=== PATIENT | male | born 1960 | race Caucasian/White ===

== ENCOUNTER → 2018-01-11 09:55 | Outpatient (CLI) | payer OTHER, MEDICAID, SELFPAY ==
--- NOTE | 2018-01-11 | DI.RAD.S_ITS ---
PROCEDURE: XR CLAVICLE LT INDICATIONS: LEFT CLAVICLE PAIN TECHNIQUE: 2 views of the clavicle were acquired. COMPARISON: None. FINDINGS: Bones: No dislocations. No suspicious bony lesions. There is a distal clavicular comminuted fracture, with a longitudinal fracture component displaced inferiorly from the distal third of the clavicle by 21.8 cm. This likely maintains alignment in relationship to the coracoid process due to the intact coracoclavicular ligament and a similar malalignment is present at the far distal clavicle with the fracture fragment aligned with the adjacent acromion. Soft tissues: No suspicious soft tissue calcifications. IMPRESSION: Comminuted fracture with significant displacement as discussed, presumably with intact coracoclavicular and acromioclavicular ligaments but fractures between the margins are by up to 1.8 cm. Dictated by: Jimi Hinson M.D. on 01/11/2018 at 11:40 Approved by: Jimi Hinson M.D. on 01/11/2018 at 11:41
== END ==
PROVIDERS: PCP Family Medicine; Visit Provider Family Medicine
DX: S42.032A Displaced fracture of lateral end of left clavicle, initial encounter for closed fracture (principal)
CPT/HCPCS: 73000

== ENCOUNTER → 2018-01-21 15:43 | Outpatient (CLI) | payer OTHER, MEDICAID, SELFPAY ==
--- NOTE | 2018-01-21 15:51 | DI.CT.S_ITS ---
PROCEDURE: CT UE LT WO CON INDICATIONS: COMMINUTED TECHNIQUE: Noncontrast 1-1.5 mm thick sections acquired from the acromioclavicular joint to the inferior scapula, with coronal and sagittal reformatting. COMPARISON: [facility], [facility]WAN, XR CLAVICLE LT, 01/11/2018, 11:11. FINDINGS: Image quality: Excellent. There is a comminuted fracture predominantly within the distal aspect of the left clavicle with extension into the proximal region. Mild surrounding hematoma is present. There is mild displacement of fracture fragments without overall angulation. Narrowing of the acromioclavicular joint is present most suggestive of degenerative change. There is mild glenohumeral narrowing also suggestive of degenerative change. No visualized fractures are identified within the adjacent scapula or chromium. Humeral head appears intact. IMPRESSION: 1. Comminuted fracture of the distal and mid clavicle with mild displacement of fracture fragments. No gross angulation. No additional fractures are identified. 2. Acromioclavicular and glenohumeral degenerative narrowing. Dictated by: Irma Stoddard M.D. on 01/21/2018 at 16:53 Approved by: Irma Stoddard M.D. on 01/21/2018 at 16:57
== END ==
PROVIDERS: PCP Family Medicine; Visit Provider Family Medicine
DX: S42.022A Displaced fracture of shaft of left clavicle, initial encounter for closed fracture (principal); M19.012 Primary osteoarthritis, left shoulder
CPT/HCPCS: 73200

== ENCOUNTER → 2020-09-07 08:58 | Outpatient (CLI) | payer OTHER, MEDICAID, SELFPAY ==
[2020-09-07 09:45] LABS: Add Manual Diff / Slide Review NO; Basophils Absolute Auto 0 /uL (0-100); Basophils Percent Auto 0.5 % (0-2); Eosinophils Absolute Auto 100 /uL (0-450); Eosinophils Percent Auto 1.2 % (2-4); Hematocrit 42.5 % (41-53); Hemoglobin 14.5 g/dL (13.5-17.5); Lymphocytes Absolute Auto 1800 /uL (1100-4500); Lymphocytes Percent Auto 27.2 % (25-40); Mean Corpuscular HGB Conc 34.2 % (30-36); Mean Corpuscular Volume 90.8 fL (80-100); Monocytes Absolute Auto 500 /uL (0-900); Monocytes Percent Auto 7.7 % (3-14); Neutrophils Absolute Auto 4100 /uL (1500-7000); Neutrophils Percent Auto 63.4 % (50-75); Platelet Count 221 X10^3/uL (150-400); Red Blood Cell Count 4.68 X10^6/uL (4.5-5.9); Red Cell Distribution Width 13.1 % (11.6-14.8); White Blood Cell Count 6.5 X10^3/uL (4.5-11.0)
[2020-09-07 10:07] LABS: Alanine Aminotransferase 33 IU/L (<50); Albumin 4.6 g/dL (3.5-5.0); Albumin Globulin Ratio 1.3 (1.0-2.8); Alkaline Phosphatase 60 U/L (38-126); Aspartate Aminotransferase 38 IU/L (17-59); BUN Creatinine Ratio 20.7 (6-22); Bilirubin Total 1.7 mg/dL (0.2-1.3); Blood Urea Nitrogen 19 mg/dL (9-20); Calcium 10.1 mg/dL (8.4-10.2); Carbon Dioxide 33 mmol/L (22-32); Chloride 97 mmol/L (98-107); Cholesterol 192 mg/dL (140-199); Estimated Glomerular Filt Rate > 60.0 mL/min (>60); Globulin 3.6 g/dL (1.7-4.1); Glucose 106 mg/dL (80-110); HDL Cholesterol 66 mg/dL (40-60); HEMOLYSIS < 15 (0-50); LDL Cholesterol Calculated 91 mg/dL (<100); Potassium 4.3 mmol/L (3.4-5.1); Sodium 137 mmol/L (137-145); Total Protein 8.2 g/dL (6.3-8.2); Triglycerides 176 mg/dL (35-150)
[2020-09-07 10:18] LABS: LDL Cholesterol Direct 105 mg/dL (<100)
[2020-09-07 10:37] LABS: Thyroid Stimulating Hormone 2.06 uIU/mL (0.47-4.68)
[2020-09-07 13:35] LABS: Hep C Virus Ab w/Reflex Quant NEGATIVE s/c (NEGATIVE)
== END ==
PROVIDERS: PCP Family Medicine; Referring Provider Family Medicine; Visit Provider Family Medicine
DX: Z79.899 Other long term (current) drug therapy (principal); E78.5 Hyperlipidemia, unspecified; Z12.5 Encounter for screening for malignant neoplasm of prostate; Z11.59 Encounter for screening for other viral diseases
CPT/HCPCS: 36415; 80053; 80061; 83721; 84443; 85025; 86803; G0103

== ENCOUNTER → 2021-11-12 10:32 | Outpatient (CLI) | payer OTHER, MEDICAID, SELFPAY ==
[2021-11-12 11:39] LABS: COVID19 -Nasal RAPID Negative (Negative)
== END ==
PROVIDERS: PCP Family Medicine; Visit Provider Nurse Practitioner Family
DX: Z20.822 Contact with and (suspected) exposure to COVID-19 (principal)
CPT/HCPCS: 87635; C9803

== ENCOUNTER 2021-11-14 12:38 | Day surgery (SDC) | payer OTHER, MEDICAID, SELFPAY ==
--- NOTE | 2021-11-14 | PATH_ITS ---
[facility] Accession Number: [id number] . 01 Material submitted: . colon - TRANSVERSE COLON POLYP 4MM . 01 Diagnosis: Transverse Colon Polyp, 4 mm, Biopsy: Colonic mucosa with prominent benign lymphoid aggregate. Negative for serrated lesion, dysplasia or malignancy. Additional step sections examined. MRV 11/19/2021 1237 Local . 01 Electronically signed: . Liam Justice MD, PhD, Pathologist NPI- [id number] . 01 Gross description: . TRANSVERSE COLON POLYP 4MM: Received in formalin is 1 fragment(s) of brandon, soft tissue measuring 0.4 x 0.3 x 0.2 cm submitted entirely in 1 cassette(s) /CPE 11/15/2021 0933 Local . 01 Pathologist provided ICD-10: K63.5 . 01 CPT . 121172 Specimen Comment: A courtesy copy of this report has been sent to [phone] Performed at: 01 [facility] [address] [place] [address] [address], [place], [place] [id number] MD Junior Yarbrough MD Phone: [phone]
--- NOTE | 2021-11-14 12:16 | PM.HP.1 ---
History of Present Illness History of Present Illness Date Patient Seen: 11/14/21 Chief complaint: SDC Narrative: 61 year old male comes in today for consideration of a screening colonoscopy. Has had 1 previous colonoscopy, denies polyps. There have been no lower GI symptoms suggesting disease such as change in bowel habits, bleeding, abdominal pain or anemia. There's been no family history of colon cancer or colon polyps. Overall health issues have been stable, including no major cardiac events for at least 6 weeks. PCP: Dr. Avila Past medical history: Insomnia Fecal urgency Hypertension Hyperlipidemia Eczema Past surgical history: Hernia repair with mesh, 1993 Family history: Father: Hypertension Mother: hyperlipidemia Siblings: Hypertension Social History: , master's degree, health care consultant. Alcohol drinks/day: 2-4 a week >5/day in last 3 mos: no Caffeine use/day: 1-2 Type of Exercise: walkd Exercise Times per Week: 4-7 Guns in home: no Dental Care w/in 6 mos.: yes Sun Exposure: frequently Seat Belt Use: yes Smoking Status: never smoker Drug Use: never HIV High Risk Behavior: no Patient History Medical History Burst fracture of lumbar vertebra Eczema Hyperlipemia Hypertension Insomnia Skin cancer Surgical History (Updated 11/13/21 @ 16:22 by July Elizabeth RN) Hx of hernia repair Family & Social History Tobacco & Substance use: Smoking Status Never smoker alcohol intake frequency a few times a week Substance Use Type marijuana Meds Home Medications and Allergies Home Medications Medication Instructions Recorded Confirmed Type aspirin 81 mg tablet 81 mg PO DAILY 11/14/21 11/14/21 History atorvastatin 20 mg tablet 20 mg PO DAILY 11/14/21 11/14/21 History losartan 50 mg tablet 50 mg DAILY 11/14/21 11/14/21 History triamterene 37.5 1 tab PO DAILY 11/14/21 11/14/21 History mg-hydrochlorothiazide 25 mg tablet Allergies Allergy/AdvReac Type Severity Reaction Status Date / Time No Known Drug Allergies Allergy Verified 11/14/21 13:04 Review of Systems Review of Systems Narrative: All remaining ROS were reviewed and negative except as addressed. Exam Narrative Exam Narrative: GENERAL: Alert and oriented, appearing stated age and in no acute distress. HEENT: Head normocephalic/atraumatic. Extraocular movements intact. LUNGS: Clear to ausculation bilaterally, no wheezes, rhonchi or rales. CV: Normal S1 and S2 with regular rate and rhythm, no audible murmurs, rubs or gallops. ABDOMEN: Soft, non-tender, non-distended, no organomegaly. Positive bowel sounds. EXTREMITIES: No clubbing, cyanosis, or edema. NEURO: Cranial nerves II through XII grossly intact, no focal deficits. PSYCH: Alert and oriented x 3. SKIN: No concerning lesions. Assessment & Plan Assessment & Plan narrative: 1. Screening for colon cancer Plan for colonoscopy. The nature and character of the procedure as well as anticipated results were discussed. The possibility of not completing the procedure was also discussed. Possible complications including aspiration pneumonia, bleeding, perforation and reaction to medications either for sedation or preparation and missed lesions were discussed. Questions were answered and proceeding to the colonoscopy was elected. Informed consent signed. I sincerely appreciate the referral allowing me to participate in this patient's care. Please contact me with any questions or concerns.
[2021-11-14] MEDS: HYOSCYAMINE 0.125 MG TABLET PO (13:08)
[2021-11-14 13:09] VITALS: BP 157/92; PULSE 83; RESP 18; TEMP 37.2; O2SAT 98
[2021-11-14 13:10] VITALS: BMI 29.5
[2021-11-14] MEDS: LACTATED RINGERS 1,000 ML 200 ML IV (13:30)
--- NOTE | 2021-11-14 13:37 | PM.OP.COLON ---
Operative Date/Time/Diagnoses Date of procedure: 11/14/21 Procedure Notes SCOAP/Timeout: 1:49 p.m. Procedure in detail: ENDOSCOPIST: Keiry De Los Santos MD Sedation RN: Aditi Ott RN Sedation start time: 1:50 p.m. Sedation end time: 2:09 p.m. PROCEDURE: Colonoscopy with cold biopsy INDICATIONS: 1. Screening for colon cancer MEDICATION: Levsin 0.125 mg sublingual, incremental doses of Versed and fentanyl until appropriate level sedation achieved. ASA CLASS: 2 CECAL WITHDRAWAL TIME: 9 minutes COMPLICATIONS: None. EXTENT OF PROCEDURE: Cecum. QUALITY OF PREP: Good with portions of liquid stool. PROCEDURE: Prior to insertion of the colonoscope, a digital rectal examination was accomplished with circumferential palpation of the distal rectal mucosa without significant findings being noted. The high-definition colonoscope was passed into the rectum in the usual fashion and advanced over to the cecum without difficulty. The ileocecal valve, appendiceal stoma, and medial wall all could be inspected and no abnormalities were seen. ASCENDING COLON: As the colonoscope was withdrawn, care was taken to expose and inspect the haustral folds and no abnormalities were seen. HEPATIC FLEXURE: Normal, no polyps, diverticula or other abnormalities. TRANSVERSE COLON: A 4 mm polyp was seen and removed with cold biopsy forceps, otherwise, no diverticula or other abnormalities. DESCENDING COLON: Normal, no polyps, diverticula or other abnormalities. SIGMOID COLON: Normal, no polyps, diverticula or other abnormalities. RECTUM: Normal. J maneuver was produced. There was no significant perianal disease. The J maneuver was broken. The remainder of the rectum was inspected and there was no external hemorrhoid disease. The scope was withdrawn. IMPRESSION: 1. Transverse colon polyp x1, 4 mm, removed with cold biopsy forceps PLAN: 1. Follow-up in clinic status post pathology results. The possibility of a missed lesion including a malignancy has been discussed with the patient previously. Potential alarm symptoms have been discussed and should be reported immediately.
[2021-11-14] MEDS: fentaNYL 250 MCG/5 ML INJ IV (13:58)
[2021-11-14] MEDS: MIDAZOLAM 5 MG/5 ML VIAL IV (13:58)
[2021-11-14 14:14] VITALS: BP 117/83; PULSE 80; RESP 11; TEMP 36.1; O2SAT 93
[2021-11-14 14:19] VITALS: BP 124/84; PULSE 80; RESP 17; O2SAT 94
[2021-11-14 14:24] VITALS: BP 118/77; PULSE 80; RESP 11; TEMP 36.7; O2SAT 92
== END 2021-11-14 14:35 | disposition home or self-care (01) ==
PROVIDERS: PCP Family Medicine; Referring Provider Student in an Organized Health Care Education/Training Program; Visit Provider Student in an Organized Health Care Education/Training Program
PROC: 0DJD8ZZ Inspection of Lower Intestinal Tract, Via Natural or Artificial Opening Endoscopic (ICD-10-PCS; CPT 45378; principal; 2021-11-14 13:45)
DX: Z12.11 Encounter for screening for malignant neoplasm of colon (principal); K63.5 Polyp of colon
CPT/HCPCS: 45380; J2250; J3010

== ENCOUNTER → 2023-03-30 09:13 | Outpatient (CLI) | payer OTHER, MEDICAID, SELFPAY ==
--- NOTE | 2023-03-30 | DI.RAD.S_ITS ---
PROCEDURE: XR WRIST RT MIN 3V INDICATIONS: right wrist pain TECHNIQUE: 4 views of the wrist were acquired. COMPARISON: None. FINDINGS: Bones: No fractures or dislocations. No suspicious bony lesions. Scaphoid view: No acute displaced fracture identified. Soft tissues: No suspicious soft tissue calcifications. IMPRESSION: No acute displaced fracture identified. If symptoms persist, follow-up radiographs and/or CT or MRI may be helpful for further evaluation. Dictated by: Stefan Pan M.D. on 03/30/2023 at 12:33 Approved by: Stefan Pan M.D. on 03/30/2023 at 12:37
== END ==
PROVIDERS: PCP Family Medicine; Referring Provider Family Medicine; Visit Provider Family Medicine
DX: M25.531 Pain in right wrist (principal)
CPT/HCPCS: 73110

== ENCOUNTER → 2024-08-07 10:01 | Outpatient (CLI) | payer OTHER, MEDICAID, SELFPAY ==
--- NOTE | 2024-08-07 10:03 | DI.RAD.S_ITS ---
PROCEDURE: XR CHEST 2V INDICATIONS: Essential (primary) hypertension TECHNIQUE: 2 views of the chest were acquired. COMPARISON: [facility], CR, XR CHEST 2V, 01/04/2018, 20:43. FINDINGS: Surgical changes and devices: Left clavicular fracture fixation hardware. Lungs and pleura: Lungs are clear. No pleural effusions or pneumothorax. Mediastinum: Mediastinal contours are normal. Heart size is normal. Bones and chest wall: No suspicious bony abnormalities. Soft tissues appear unremarkable. IMPRESSION: No acute cardiopulmonary abnormality is seen. Approved by: Stefan Singletary M.D. on 08/07/2024 at 16:32
== END ==
LOC: RAD 10:02
PROVIDERS: PCP Family Medicine; Referring Provider Family Medicine; Visit Provider Family Medicine
DX: I10 Essential (primary) hypertension (principal)
CPT/HCPCS: 71046